=== PATIENT | female | born 1995 | race Caucasian/White ===

== ENCOUNTER 2017-05-30 10:49 | Emergency (ER) | payer OTHER ==
[~2017-05-30 10:49] MED LIST: LEXA20TA PO
[2017-05-30 10:50] VITALS: BP 141/89; PULSE 117; RESP 15; TEMP 97.8; O2SAT 98
--- NOTE | 2017-05-30 11:09 | PD ---
HPI Chief Complaint: Injury Time Seen by Provider: 11:08 Travel History International Travel<30 days: No Contact w/Intl Traveler<30days: No Traveled to known affect area: No History of Present Illness HPI 21-year-old female presents emergency Department with complaint of right knee pain since Wednesday after falling on it while at work on her skates; says she works at [employer]. She has been ambulatory on the affected extremity with worsening yesterday after putting on her skates again for a few hours at work. Denies paresthesias, loss of sensation to the affected extremity. Reports decreased range of motion. Reports significant bruising to the right knee and down to her ankle area, which she says has been there since after the fall and has gotten better. Denies fever, vomiting. He took at 800 on room ibuprofen prior to arrival for symptom management. No known allergies. Has no other medical complaints. No other modifying factors or associated signs and symptoms. PFSH Past Medical History ADD: Yes ADHD: Yes Depression: Yes Cancer: No Cardiovascular Problems: No Developmental Delay: No Diminished Hearing: No Endocrine: No Genitourinary: No Musculoskeletal: No Neurologic: No Psychiatric: Yes Reproductive: No Respiratory: No Immunizations Current: Yes : 0 Para: 0 Miscarriage: 0 : 0 Social History Alcohol Use: Yes (Occassionally. ) Tobacco Use: No Substance Use: No Allergies-Medications (Allergen,Severity, Reaction): Coded Allergies: No Known Allergies (Verified , 05/30/17) Reported Meds & Prescriptions Reported Meds & Active Scripts Active Ibuprofen 800 Mg Tab 800 Mg PO Q6HR PRN Review of Systems Except as stated in HPI: all other systems reviewed are Neg Physical Exam Narrative GENERAL: Well-nourished, well-developed female patient, in no acute distress; afebrile, nontoxic-appearing SKIN: Warm and dry. HEAD: Atraumatic. Normocephalic. EYES: Pupils equal and round. No scleral icterus. No injection or drainage. ENT: Mucosa pink and moist. Airway patent. NECK: Trachea midline. CARDIOVASCULAR: Regular rate. RESPIRATORY: No accessory muscle use. GASTROINTESTINAL: Round. MUSCULOSKELETAL: Right knee edematous, nonerythematous, and with ecchymosis noted to the lower aspect; full range of motion and flexion to 90; point tenderness to the patellar aspect; joint stable with negative drawer test; no obvious deformity. Right Lower extremity is supple and non-tense with 2+ pedal pulse and sensory intact and without erythema; significant ecchymosis in different stages noted just below the right knee down the hardy and to the ankle area. Denies right ankle pain. NEUROLOGICAL: Awake and alert. Oriented 3. No obvious cranial nerve deficits. Motor grossly within normal limits. Normal speech. PSYCHIATRIC: Appropriate mood and affect; insight and judgment normal. Data Data Last Documented VS Vital Signs Date Time Temp Pulse Resp B/P Pulse Ox O2 Delivery O2 Flow Rate FiO2 05/30/17 12:59 70 16 127/76 99 Room Air 05/30/17 10:50 97.8 Orders Knee, Complete (4vws) (05/30/17 11:09) Ice/Cold Pack (05/30/17 11:09) Crutches (05/30/17 13:55) Splint Or Brace Apply/Monitor (05/30/17 13:55) MDM Medical Decision Making Medical Screen Exam Complete: Yes Emergency Medical Condition: Yes Medical Record Reviewed: Yes Differential Diagnosis Patellar fracture, meniscal tear, ACL tear, knee sprain Narrative Course 21-year-old female with right knee injury. She does have significant bruising from just below the knee down the hardy anterior ankle area in different stages. Patient reports the bruising has improved since the injury on Wednesday. The right lower extremity is supple and nontense with 2+ pedal pulse and sensory intact. Patient took ibuprofen 800 mg prior to arrival. Right knee x-ray ordered. 1400: Right knee x-ray with no acute findings. Preston bandage and crutches provided for support. Work release provided. Ibuprofen prescribed for home. Instructed patient to follow up if symptoms persist greater than 10-14 days. Instructed patient to follow up with primary care provider. Patient verbalizes understanding and agreement with treatment plan. Patient is medically cleared and stable for discharge. Discussed reasons to return to the emergency department. Patient agrees with treatment plan. The patients vital signs are stable and the patient is stable for outpatient follow-up and treatment. Patient discharged home, stable and in no acute distress. Diagnosis Primary Impression: Injury of right knee Qualified Code: S89.91XA - Injury of right knee, initial encounter Additional Impression: Traumatic ecchymosis of right lower leg Qualified Code: S80.11XA - Traumatic ecchymosis of right lower leg, initial encounter Referrals: Primary Care Physician Patient Instructions: Ecchymosis (ED), General Instructions, Knee Sprain (ED) Departure Forms: Tests/Procedures, Work Release Enter return to work date: Jun 02, 2017 Special Instructions: I would advise no roller skates at work for the next 2 -3 weeks Additional Instructions: Tylenol or ibuprofen as needed and as directed to reduce pain and inflammation Rest, ice, compress, and elevate extremity to decrease pain and inflammation Knee brace for support Crutches for support Avoid aggravating activity; increase activity as tolerated Follow-up with primary care provider Follow-up with orthopedics Return to the emergency department immediately with worsening symptoms Med/Other Pt SpecificInfo: Prescription(s) given Scripts Ibuprofen 800 Mg [id number] Mg PO Q6HR PRN (PAIN) #30 TAB Ref 0 Prov:Capri Bain 05/30/17 Disposition: 01 DISCHARGE HOME Condition: Stable Capri Bain May 30, 2017 11:08
--- NOTE | 2017-05-30 11:42 | RADRPT ---
EXAM DATE/TIME: 05/30/2017 11:28 [facility] COMPARISON: No previous studies available for comparison. INDICATIONS : Pain from fall on concrete. MEDICAL HISTORY : None. SURGICAL HISTORY : None. ENCOUNTER: Initial ACUITY: 4 - 6 days PAIN SCORE: 5/10 LOCATION: Right knee. FINDINGS: Four view examination of the right knee demonstrates no evidence of fracture or dislocation. Bony mi neralization is normal. The articular surfaces are intact. The suprapatellar soft tissues have a no rmal configuration. CONCLUSION: Unremarkable examination of the right knee. Wesly Sher MD on May 30, 2017 at 11:40 Board Certified Radiologist. This report was verified electronically.
[2017-05-30 12:59] VITALS: BP 127/76; PULSE 70; RESP 16; O2SAT 99
[2017-05-30] MEDS ORDERED: IBUP800T23 PO (13:54)
== END 2017-05-30 14:20 | disposition home or self-care (01) ==
LOC: NEPD 10:49
DX: S89.91XA Unspecified injury of right lower leg, initial encounter (principal); S80.11XA Contusion of right lower leg, initial encounter; F32.9 Major depressive disorder, single episode, unspecified; V00.121A Fall from non-in-line roller-skates, initial encounter; Y99.0 Civilian activity done for income or pay
CPT/HCPCS: 73564; 99283; E0113